=== PATIENT | female | born 1950 | race Caucasian/White ===

== ENCOUNTER 2016-10-31 07:08 | Day surgery (SDC) | payer BC ==
[2016-10-31] VITALS (11 sets, daily range): BP systolic 112–148; BP diastolic 66–93; PULSE 89–106; TEMP 36.6–36.8; O2SAT 96–98; Ht 161.3 cm; Wt 66.0 kg
[~2016-10-31] VITALS: Ht 161.3 cm; Wt 66.0 kg
[~2016-10-31 07:08] MED LIST: ALBUAER19 INH; CLTP PO; CYCL0.052 OP; DICL50TA3 PO; GLUC10007 PO; IBUP600T44 PO; MONT1TAB5 PO; MULTTAB5 PO; NRN/300 PO; OMEG-112 PO; PANT1TAB48 PO; POLY1DRO2 OPB; POLYSOL4 OP; RISE150T PO; RXC5 PO
--- NOTE | 2016-10-31 09:39 | Discharge Instructions ---
Discharge Instructions Procedure Procedure Date: Oct 31, 2016. Reason for visit: Spinal Stenosis. Discharge Discharge Date: Oct 31, 2016. Discharge Diagnosis: s/p lumbar myelogram Instructions Activity Recommendations: 1 Day-May resume regular activity, 48 Hours of decreased exertion Return to School/Work: no limitations Recommended Home Diet: No Limitations Provider Instructions: ACTIVITY RECOMMENDATIONS: * Rest today. * Resume regular activity in one day. MEDICATIONS: * May take Tylenol or Ibuprofen as needed for pain. DIET: * Resume previous diet. SPECIAL CARE INSTRUCTIONS: Call your doctor if: * Temperature above 101 degrees F. * Pain not relieved by pain medicine ordered. * Increased drainage or redness from incision. * Notify your doctor with any questions or concerns. Call your doctor or go to the nearest Emergency Department if you experience: * Increased chest pain or shortness of breath. FOLLOW UP VISIT: Follow-up with Referring Physician as scheduled. Allergies Coded Allergies: Cephalexin (Verified Allergy, Unknown, RASH, 10/31/16) Clindamycin (Verified Allergy, Unknown, RASH, 10/31/16) CLEOCIN = RASH Morphine (Unverified Adverse Reaction, Severe, n/v, hallucinations, ) [place] Recommendations: Call your doctor if: * Temperature above 101 degrees * Pain not relieved by pain medicine ordered * There is increased drainage or redness from any incision * You have any unanswered questions or concerns. Your Doctors Instructions noted above were prepared by provider Lucius Knight. Patient Signature Section: Patient Instructions Signature Page Patricia Bass Patient (or Guardian) Signature/Date: I have read and understand the instructions given to me by my caregivers. Caregiver/RN/Doctor Signature/Date: The above-named patient and/or guardian has received patient instructions on this date. + Original Patient Signature Page (only) stays with chart. Please make copy for patient.
--- NOTE | 2016-10-31 09:52 | DIAGNOSTIC IMAGING REPORT ---
FLUOROSCOPICALLY GUIDED LUMBAR MYELOGRAM CLINICAL HISTORY: Lumbar myelogram. Low-back pain radiating into left lower extremity. COMPARISON STUDY: MRI of the lumbar spine August 27, 2015. Fluoroscopy time: 0.5 minutes. PROCEDURE: The procedure, risks and benefits were discussed with the patient including the risk of spinal headache, bleeding and infection. The patient agreed to the procedure and informed written consent was obtained. Fluoroscopy of the lumbar spine demonstrating multilevel fusion with one level discectomy. Skin overlying the laminectomy site at the L5 level was prepped and draped in sterile fashion and local anesthesia was achieved with 1% lidocaine. Under intermittent fluoroscopic guidance, a 5 inch, 22-gauge spinal needle was directed into the thecal sac with immediate return of clear CSF. At this time, 10 cc of Isovue-M 200 was instilled to the thecal sac. The needle was removed. Fluoroscopic images demonstrated mild ventral indentation upon the thecal sac at several levels. The patient was transported to CT. The patient tolerated the procedure well and no immediate complications were evident. IMPRESSION: Fluoroscopic guided myelogram prior to CT. Electronically signed by: Lucius Knight M.D. 10/31/2016 9:51 AM Dictated Date/Time: 10/31/2016 9:39 AM
--- NOTE | 2016-10-31 10:07 | DIAGNOSTIC IMAGING REPORT ---
CT LUMBAR MYELOGRAM CT DOSE: 643.38 mGy.cm CLINICAL HISTORY: Low back pain radiating into left lower extremity. TECHNIQUE: Following a fluoroscopically guided lumbar myelogram, axial images through the lumbar spine were obtained without IV contrast. Sagittal and coronal reconstructions were viewed. COMPARISON STUDY: MRI of the lumbar spine August 27, 2015. FINDINGS: For purposes of numbering on this exam, the L5-S1 disc space is assigned to axial image 303 of [id number]. There is an L4-L5 discectomy with interbody spacer placement. There is a right-sided pedicle screw at the L3 level with bilateral pedicle screws at the L4, L5 and S1 levels. The hardware is intact. There is lucency surrounding the right L3 pedicle screw with mild lucency surrounding the S1 pedicle screws. No acute lumbar spine fracture is present. Note is made of 5 mm of anterolisthesis of L5 on S1 which is similar to exam of August 27, 2015. There is minimal retrolisthesis of L4 and L5 which is improved. No intracanalicular mass or fluid collection is present. A tiny locule of gas within the thecal sac is likely related to the procedure. T12-L1: The central canal and neural foramen are patent. L1-L2: The central canal and neural foramen are patent. L2-L3: The central canal and neural foramen are patent. L3-L4: There is a disc bulge with central disc protrusion. There is no significant central canal narrowing. There is an mild narrowing of the lateral recesses and neural foramen. L4-L5: The central canal is patent. The neural foramen are suboptimally assessed due to artifact. There is suspected mild narrowing of both neural foramen. L5-S1: There is no central canal stenosis. There is mild narrowing of the neural foramen. IMPRESSION: 1. Status post L4-L5 discectomy with interbody spacer placement and L3-S1 pedicle screw fusion. Lucency surrounding the right L3 pedicle screw and to a the lesser extent the S1 pedicle screws raises the possibility of loosening. 2. No lumbar spine fracture. 3. Mild disc bulge with central disc protrusion at L3-L4 with mild narrowing of the lateral recesses and neural foramen. 4. Mild multilevel neural foraminal stenosis, as detailed above. Electronically signed by: Lucius Knight M.D. 10/31/2016 10:06 AM Dictated Date/Time: 10/31/2016 9:54 AM
[2016-11-20] MEDS ORDERED: POLYSOL4 OP (11:57)
[2017-01-28] MEDS ORDERED: OFLO0.3S OPR (12:34)
[2017-01-28] MEDS ORDERED: PRED1SUS3 OPR (12:34)
[2017-01-28] MEDS ORDERED: NEPA0.6D OPR (12:35)
== END 2016-10-31 13:30 | disposition home or self-care (01) ==
LOC: C.ACU 07:08
PROVIDERS: ATTEND Orthopaedic Surgery Orthopaedic Surgery of the Spine
DX: M48.06 Spinal stenosis, lumbar region (principal); M54.16 Radiculopathy, lumbar region

== ENCOUNTER → 2016-11-11 | Outpatient (CLI) | payer BC ==
[~2016-11-11] MED LIST changes: +ACET-1256 PO; +NEPA0.6D OPR; +OFLO0.3S OPR; +PRED1SUS3 OPR; -RXC5 PO
--- NOTE | 2016-11-11 12:05 | DIAGNOSTIC IMAGING REPORT ---
THREE-PHASE NUCLEAR BONE SCAN OF THE LUMBAR SPINE; WHOLE BODY BONE SCAN CLINICAL HISTORY: Chronic low back pain. Clinical concern for hardware loosening. COMPARISON STUDY: CT scan of the lumbar spine dated 10/31/2016. Left shoulder radiographs dated 06/27/2016. TECHNIQUE: Following the IV administration of 24.8 mCi of technetium 99m MDP, three-phase bone scan of the lumbar spine was performed. Anterior and posterior flow and blood pool phase images were acquired. Bone phase imaging of lumbar spine was performed at three hours in multiple obliquities. Whole body images were obtained both anteriorly and posteriorly. FINDINGS: No hyperemia is clearly identified in the region of the lumbar spine or sacrum on the flow and blood pool phase images. On the bone phase images of the lumbar spine there is diffuse low-level activity, likely on a degenerative and postoperative basis. There is slightly asymmetric activity in the region of the right pedicle of L3. There is also nonspecific activity within the sacrum bilaterally. These findings may be related to hardware loosening which is strongly suspected by CT. This could also be related to chronic insufficiency fractures. There is marked and asymmetric activity within the left iliac wing. This is consistent with a healing fracture when correlated with the 10/31/2016 CT scan. There is asymmetric activity within the right pubic ring. On the whole body imaging, there is significant an focal asymmetric activity within the left humeral neck. This is consistent with a healing fracture when correlated with the 06/27/2016 shoulder x-rays. Low-level foci of activity within the shoulders, knees, ankles, and right first metatarsophalangeal joint are typical appearance for degenerative change. There is expected excreted tracer activity within the renal collecting system and bladder. IMPRESSION: 1. Three-phase negative bone scan of lumbar spine. No hyperemia is identified on the flow or blood pool phase images. 2. There is focal bone phase activity within the right pedicle of L3. This is highly concerning for loosening when correlated with the CT images. 3. There is nonspecific low level tracer activity identified in the sacrum. This could be related to loosening of the sacral hardware which is strongly suspected by CT. This could also be related to chronic sacral insufficiency fractures which were also shown by CT. 4. There is significant abnormal tracer deposition shown within the left iliac wing. This is consistent with a subacute/healing fracture when correlated with the 10/31/2016 CT images. 5. Significant abnormal tracer uptake in the left proximal humerus is consistent with a healing fracture when correlated with the 06/27/2016 shoulder x-ray. 6. Focal abnormal activity within the right pubic ring is nonspecific and could also represent a healing fracture. Consider radiographic correlation. Electronically signed by: Fahad Alberto M.D. 11/11/2016 12:04 PM Dictated Date/Time: 11/11/2016 11:50 AM
== END | disposition home or self-care (01) ==
LOC: C.NUCL 07:22
PROVIDERS: ATTEND Orthopaedic Surgery Orthopaedic Surgery of the Spine
DX: R52 Pain, unspecified (principal); R93.7 Abnormal findings on diagnostic imaging of other parts of musculoskeletal system

== ENCOUNTER → 2016-11-18 | Outpatient (CLI) | payer BC | END | disposition home or self-care (01) | LOC: C.LABBC 09:23 | PROVIDERS: ATTEND Orthopaedic Surgery Orthopaedic Surgery of the Spine | DX: Z01.812 Encounter for preprocedural laboratory examination (principal) ==

== ENCOUNTER 2016-11-27 05:26 | Inpatient (IN) | payer BC, OTHER ==
[2016-11-18 13:53] LABS: BASO % 0.5 %; BASO ABS # 0.03 K/uL (0-0.2); COMPLETE YES; EOS % 2.1 %; LYMPH % 21.4 %; LYMPH ABS # 1.21 K/uL (1.2-3.4); MEAN CELL VOLUME 96.2 fL (80-100); MEAN CORPUSCULAR HEMOGLOBIN 33.2 pg (25-34); MEAN CORPUSCULAR HGB CONC 34.5 g/dl (32-36); MEAN PLATELET VOLUME 11.7 fL (7.4-10.4); MONO % 13.1 %; NEUT % 62.9 %; PLATELET COUNT 244 K/uL (130-400); RED BLOOD COUNT 4.16 M/uL (4.2-5.4); WHITE BLOOD COUNT 5.66 K/uL (4.8-10.8)
[2016-11-18 14:03] LABS: BLOOD UREA NITROGEN 12 mg/dl (7-18); BUN/CREATININE RATIO 15.2 (10-20); CALCIUM 9.4 mg/dl (8.5-10.1); CARBON DIOXIDE 27 mmol/L (21-32); CHLORIDE 103 mmol/L (98-107); CREATININE 0.77 mg/dl (0.60-1.20); GLUCOSE 98 mg/dl (70-99); POTASSIUM 4.2 mmol/L (3.5-5.1); SODIUM 139 mmol/L (136-145)
[2016-11-18 14:17] LABS: PROTHROMBIN TIME (PATIENT) 10.6 SECONDS (9.0-12.0)
[2016-11-20 11:57] VITALS: BMI 25.0
--- NOTE | 2016-11-26 21:09 | HISTORY & PHYSICAL EXAMINATION ---
DATE OF ADMISSION: 11/27/2016 PREOPERATIVE HISTORY AND PHYSICAL PROCEDURE: Lumbar spine revision, spinal columns construct with fusion L5-S1, posterior interbody L5-S1. Hopefully, correct her swayback deformity. HISTORY OF PRESENT ILLNESS: Patricia is a delightful patient, 66 years of age, mechanical back pain, strained the lumbar spine, possible loose implants lumbar spine and spondylolisthesis L5-S1. She has back pain, lower extremity difficulty, ongoing now for about 1 year in duration. PAST MEDICAL HISTORY: Positive for breast carcinoma, asthma. PAST SURGICAL HISTORY: Lumbar spine reconstruction, breast surgery. ALLERGIES: ANCEF, CLINDAMYCIN. FAMILY HISTORY: Heart disease. SOCIAL HISTORY: She is . She is active, 1-2 alcoholic beverages daily. No tobacco use. Active lifestyle, retired. REVIEW OF SYSTEMS: Her major positive review is musculoskeletal back pain. Ear, nose and throat negative. Denies fevers, sweats, or chills. Denies asthma, shortness of breath. Denies nausea, vomiting. Denies urgency, frequency. No diabetes. Thyroid, no easy bruisability. MEDICATIONS: Neurontin, Actonel, vitamins, Castana, glucosamine. PHYSICAL EXAMINATION: GENERAL: She is 5 foot 5 inches, 150 pounds. She is in distress. She has back pain as described. VITAL SIGNS: Blood pressure 130/80, pulse of 80, respiration rate 16, temperature 97.4. HEENT: Pupils are equally reactive to light and accommodation. Ear, nose and throat clear. CARDIAC: Normal S1, S2, no S3. LUNGS: Clear to auscultation. ABDOMEN: Soft, nontender. All incisions clean, dry. No signs of infection. SPINE: Lumbar spine incision perfect. SKIN AND INTEGUMENTARY: Normal, no adenopathy. NEUROLOGICAL: She has 5/5 strength, good sensation, slight weakness of quad on the right and dorsiflexion on the right, mild gait abnormality. Pain with flexion and extension, pain with percussion. IMAGES: Demonstrated a very significant swayback deformity of the spine, L5-S1 spondylolisthesis. No apparent broken implants. ASSESSMENT: Mechanical back pain, accentuated lordosis lumbar spine, possible broken implants, spondylolisthesis L5-S1. DISPOSITION: Includes revision surgery, lumbar spine and a decompression fusion and posterior lumbar interbody fusion at L5-S1 lumbar spine, under general anesthetic at [facility] on the . [facility]
[2016-11-27] VITALS (10 sets, daily range): BP systolic 99–134; BP diastolic 64–85; PULSE 78–95; TEMP 36.3–36.8; O2SAT 94–100; Ht 162.6 cm; Wt 66.4 kg
[~2016-11-27] VITALS: Ht 162.6 cm; Wt 66.4 kg
[~2016-11-27 05:26] MED LIST changes: -ACET-1256 PO; -NEPA0.6D OPR; -OFLO0.3S OPR; -PRED1SUS3 OPR
[2016-11-27] MEDS ORDERED: LACTATED RINGER'S 1000ML IV SCH (06:00)
[2016-11-27] MEDS ORDERED: VANCOMYCIN 1GM/270ML NSS 270 ML IV SCH (06:00)
[2016-11-27] MEDS ORDERED: NSS 1000ML IV SCH (06:00)
[2016-11-27] MEDS ORDERED: ACET-1256 PO (06:20)
[2016-11-27] MEDS ORDERED: MIDAZOLAM HCL 1 MG/ML 2ML VIAL ONE (06:40)
[2016-11-27] MEDS ORDERED: FENTANYL CITRATE INJ 50 MCG/1 ML 2 ML VIAL ONE (06:40)
[2016-11-27] MEDS ORDERED: GELATIN SPONGE SZ 100 ONE ×3 (06:57→09:23)
[2016-11-27] MEDS ORDERED: BUPIVACAINE/EPINEPHRINE 0.5% MPF 1:200,000 30 ML VIAL ONE (06:58)
[2016-11-27] MEDS ORDERED: VANCOMYCIN HCL 1000MG/20ML VIAL ONE (06:58)
[2016-11-27] MEDS ORDERED: THROMBIN FOR SOLN 20000 UNIT KIT ONE ×2 (06:58→08:14)
[2016-11-27] MEDS ORDERED: BACITRACIN 50000 UNIT VIAL ONE (06:59)
--- NOTE | 2016-11-27 07:10 | History & Physical Bridge Note ---
H&P Re-Evaluation Bridge Note: I have examined the patient, reviewed the History & Physical and in the interval since the performance of the History & Physical I have noted the following changes of clinical significance: Removal of prior implants L3-S1. reinsertion, PLIF L5-S1
[2016-11-27] MEDS ORDERED: HYDROmorphone INJ 2 MG/ML SYR/VIAL ONE (07:47)
[2016-11-27] MEDS ORDERED: GLYCOPYRROLATE INJ 0.2 MG/ML VIAL ONE (07:56)
[2016-11-27] MEDS ORDERED: PROPOFOL IV EMULSION 10 MG/ML 20 ML VIAL IV ONE (07:56)
[2016-11-27] MEDS ORDERED: ROCURONIUM BROMIDE 10 MG/ML 5 ML VIAL ONE (07:56)
[2016-11-27] MEDS ORDERED: ONDANSETRON INJ 2 MG/ML 2 ML VIAL ONE (07:56)
[2016-11-27] MEDS ORDERED: DEXAMETHASONE SOD INJ 4 MG/ML VIAL ONE (07:56)
[2016-11-27] MEDS ORDERED: LIDOCAINE HCL 2% 2 ML VIAL (20MG/ML) ONE (07:56)
[2016-11-27] MEDS ORDERED: NEOSTIGMINE METHYLSULFATE 5 MG/5 ML SYR ONE (07:56)
[2016-11-27] MEDS ORDERED: ALBUMIN HUMAN 5% 12.5 GM/250 ML VIAL IV ONE (08:38)
[2016-11-27 10:03] LABS: HEMATOCRIT 29.6 % (37-47)
[2016-11-27] MEDS ORDERED: ATROPINE SULFATE 0.1 MG/ML 5ML SYR IV PRN (10:30)
[2016-11-27] MEDS ORDERED: LABETALOL HCL IV 5 MG/ML 20ML IV PRN (10:30)
[2016-11-27] MEDS ORDERED: ONDANSETRON INJ 2 MG/ML 2 ML VIAL IV PRN ×2 (10:30→11:45)
[2016-11-27] MEDS ORDERED: NALOXONE HCL 0.4 MG/1 ML VIAL/CARP IV PRN ×2 (10:30→11:45)
[2016-11-27] MEDS ORDERED: PROMETHAZINE HCL INJ 12.5 MG in SODIUM CHLORIDE 0.9% 50ML 50 ML IV PRN ×2 (10:30→11:45)
[2016-11-27] MEDS ORDERED: EpHEDrine SULFATE INJ 50 MG/ML AMP IV PRN (10:30)
[2016-11-27 10:35] LABS: HEMATOCRIT 26.9 % (37-47)
[2016-11-27] MEDS ORDERED: PHENYLEPHRINE HCL INJ 10 MG/ML VIAL ONE (11:15)
--- NOTE | 2016-11-27 11:28 | DIAGNOSTIC IMAGING REPORT ---
INTRAOPERATIVE RADIOGRAPHS CLINICAL HISTORY: L2-S1 spinal fusion. Fluoroscopy time: 22 seconds. FINDINGS: 3 spot fluoroscopic views of lumbar spine are presented. There is evidence of discectomy at L4-L5 and L5-S1. There is been laminectomy and posterior fusion from L2 -S1. Intraventricular screws are present at all levels with the exception of L2. The orthopedic hardware appears intact. A surgical drain is present in the posterior soft tissues. IMPRESSION: Intraoperative images from L2 -S1 spinal fusion as above. Electronically signed by: Fahad Alberto M.D. 11/27/2016 11:26 AM Dictated Date/Time: 11/27/2016 11:25 AM
--- NOTE | 2016-11-27 11:37 | [facility] Post Operative Brief Note ---
Immediate Operative Summary Operative Date Nov 27, 2016. Pre-Operative Diagnosis SPINAL STENOSIS, LOOSE HARDWARE Post-Operative Diagnosis SAME PREOP Procedure(s) Performed L3-S1 HARDWARE REMOVAL , L2-S1 SPINAL FUSION, APPLICATION INTERBODY CAGE L5-S1, LEFT ILIAC CREST BONE GRAFT Surgeon DR.J. ARCHULETA Design Technology Professor Surgeon(s) Dorothy BRUCE PAC Estimated Blood Loss 800ml Findings loose hardware. non union Specimens REMOVED SPINE HARDWARE Complication(s) None Disposition Recovery Room / PACU
[2016-11-27] MEDS ORDERED: LORAZEPAM INJ 1 MG in SYRINGE 0 ML IV PRN (11:45)
[2016-11-27] MEDS ORDERED: ALBUTEROL HFA 8 GM INHALER INH PRN (11:45)
[2016-11-27] MEDS ORDERED: GLUCOSAMINE SULFATE 1500 MG PO SCH (11:45)
[2016-11-27] MEDS ORDERED: PANTOprazole SOD 40 MG TAB PO PRN (11:45)
[2016-11-27] MEDS ORDERED: ACETAMINOPHEN 325 MG TAB PO PRN (11:45)
[2016-11-27] MEDS ORDERED: SODIUM CHLORIDE 0.9% 1000ML 1,000 ML IV SCH (11:45)
[2016-11-27] MEDS ORDERED: METOCLOPRAMIDE HCL INJ 5 MG/ML 2 ML VIAL IV PRN (11:45)
[2016-11-27] MEDS ORDERED: MAGNESIUM HYDROXIDE SUSP 30 ML UDC PO PRN (11:45)
[2016-11-27] MEDS: HYDROmorphone INJ 1 MG/ML SYR IV PRN ×3 (11:55→12:25)
[2016-11-27] MEDS ORDERED: HYDROmorphone HCL 0.5MG/ML 50 ML CASSETTE ONE (12:03)
[2016-11-27] MEDS: HYDROmorphone HCL 0.5MG/ML 50 ML CASSETTE IV PRN ×3 (12:10→19:00)
[2016-11-27 12:29] LABS: HEMATOCRIT 28.9 % (37-47)
--- NOTE | 2016-11-27 13:14 | Anesthesiology Progress Note ---
Anesthesia Post Op Note Date & Time Nov 27, 2016 at 13:14 Vital Signs Pain Intensity: 4 Vital Signs Past 12 Hours Date Time Temp Pulse Resp B/P Pulse Ox O2 Delivery O2 Flow Rate FiO2 11/27/16 12:55 96 15 97/54 100 Nasal Cannula 4 11/27/16 12:45 78 15 99/62 100 Nasal Cannula 4 11/27/16 12:35 36.7 94 15 107/59 100 Nasal Cannula 4 11/27/16 12:25 85 12 105/56 99 Nasal Cannula 4 11/27/16 12:15 101 12 114/57 99 Mask 10 11/27/16 12:05 96 12 109/63 99 Mask 10 11/27/16 11:55 99 12 111/62 99 Mask 10 11/27/16 11:45 98 12 127/70 100 Mask 10 11/27/16 11:39 36.7 100 16 124/81 99 Mask 10 11/27/16 05:47 36.8 88 20 134/85 96 Room Air Notes Mental Status: alert / awake / arousable, participated in evaluation Pt Amnestic to Procedure: Yes Nausea / Vomiting: adequately controlled Pain: adequately controlled Airway Patency, RR, SpO2: stable & adequate BP & HR: stable & adequate Hydration State: stable & adequate Anesthetic Complications: no major complications apparent
--- NOTE | 2016-11-27 13:16 | OPERATIVE REPORT ---
DATE OF OPERATION: 11/27/2016 PREOPERATIVE DIAGNOSES: 1. Spondylolisthesis L5-S1. 2. Possible nonunion L4, L5, S1. 3. Loose hardware prior construct lumbar spine. POSTOPERATIVE DIAGNOSES: Same. PROCEDURE: Include: 1. Removal of prior instrumentation, pedicle screw system from L3 to the sacrum. 2. A pedicle screw instrumentation L2 down to the sacrum revision strategies. 3. Posterior lumbar interbody fusion at L5-S1. 4. Posterolateral fusion L2-L5, instrumentation as well L2 down to the sacrum. SURGEON: Dr. Jackson. SIZING MACHINE TENDER: Félix De PA-C. COMPLICATIONS: No apparent intraoperative complications. BLOOD LOSS: 800 mL DESCRIPTION OF PROCEDURE: The patient was taken the operating room and general intubated anesthetic provided to the patient, placed prone, scrubbed with Betadine, prepped with ChloraPrep, draped sterile. We made a skin incision to the sacrum, dissecting the soft tissue. We carefully got to the old implants, dissected the soft tissue out over the implants. We did have more than the normal amount of bleeding from the prior fusion. I think some neovascularization caused some extra blood flow to the region. We were carefully able to take out the old implants. There was definite loosening of some of the screws, particularly S1 on the left, L4 on the right hand side. The entire construct was not grossly loose. There were no signs of purulence or infection. We then concentrated on the L5-S1 interval. I was carefully able to get to the disc space on the right hand side. It was very tedious, it was very tight. We were able to retract the dura over and find the disc interval, do a posterior lumbar interbody fusion at L5-S1 with a PEEK cage packed with allograft and autograft in a demineralized bone matrix. We then instrumented the spine, safely getting revision screws which were larger screws 5, 4, 2 on the right and the sacrum 5, 4, and 2 on the left. I was pleased with the positioning and the fixation. There were no apparent complications with the construct. We irrigated thoroughly. Prior to closing, we bone grafted out of the transverse processes a combination of allograft and autograft material and DBM which is demineralized bone matrix. We placed this from 2, 3, to 4. Additional procedure was a left iliac crest graft. I made the same skin incision, separate fascial incision. I was able to harvest bone graft from the left ilium. A nice quantity of bone was obtained. I felt we did not harm the iliac crest or iliac wing. We irrigated, closed in layers, staple gun on the skin. Sterile dressing applied. Vancomycin topical powder placed in the wound, 1 gram. We had vancomycin mixed with the bone as well. Sterile dressings were applied. The patient returned to PACU stable. No apparent complications. Sponge and needle count correct. IMPLANTS USED: By the [employer]. I attest to the content of the Intraoperative Record and any orders documented therein. Any exceptions are noted below. MTDD
[2016-11-27] MEDS: SODIUM CHLORIDE 0.9% 1000ML 1,000 ML IV SCH ×2 (14:06→23:24)
[2016-11-27] MEDS: DEXAMETHASONE INJ 10 MG in SYRINGE 0 ML IV SCH ×2 (16:42→23:24)
[2016-11-27] MEDS: KETOROLAC TROMETHAMINE 30 MG/ML VIAL IV. SCH ×2 (16:42→20:48)
[2016-11-27] MEDS: CycloSPORINE 0.05% 0.4 ML 30 UDV/BOX OP SCH (18:23)
[2016-11-27] MEDS: SYSTANE OP SCH (18:24)
[2016-11-27] MEDS: VANCOMYCIN INJ 1,000 MG in SODIUM CHLORIDE 0.9% 250ML 250 ML IV SCH (19:12)
[2016-11-27] MEDS: MONTELUKAST SOD 10 MG TAB PO SCH (20:48)
[2016-11-27] MEDS ORDERED: NON-FORMULARY MEDICATION (Polyethylene Glycol-Propylene (Systane) 1 DROPS) OP SCH (21:00)
[2016-11-28] VITALS (7 sets, daily range): BP systolic 109–132; BP diastolic 66–82; PULSE 74–128; TEMP 36.6–36.9; O2SAT 94–100
[2016-11-28] MEDS: KETOROLAC TROMETHAMINE 30 MG/ML VIAL IV. SCH ×3 (03:39→15:25)
[2016-11-28] MEDS: VANCOMYCIN INJ 1,000 MG in SODIUM CHLORIDE 0.9% 250ML 250 ML IV SCH (05:57)
[2016-11-28] MEDS ORDERED: BISACODYL 10 MG SUPP PR PRN (06:00)
[2016-11-28] MEDS ORDERED: BISACODYL 5 MG TABEC PO PRN (06:00)
[2016-11-28] MEDS: DEXAMETHASONE INJ 10 MG in SYRINGE 0 ML IV SCH ×3 (07:42→23:37)
[2016-11-28] MEDS ORDERED: HYDROmorphone INJ 1 MG/ML SYR IV PRN ×2 (08:00)
[2016-11-28] MEDS ORDERED: OXYCODONE/ACETAMINOPHEN 5-325 TAB PO PRN ×2 (08:00)
[2016-11-28] MEDS ORDERED: DC PCA ONE (08:00)
[2016-11-28] MEDS ORDERED: LORAZEPAM 1 MG TAB PO PRN (08:00)
[2016-11-28] MEDS ORDERED: NURSING VERBAL MED ORDER ONE (08:15)
[2016-11-28] MEDS: CycloSPORINE 0.05% 0.4 ML 30 UDV/BOX OP SCH ×2 (08:38→20:38)
[2016-11-28] MEDS: SYSTANE OP SCH ×2 (08:38→20:38)
[2016-11-28] MEDS: CALCIUM 600MG + VIT D 400 IU TAB PO SCH (08:39)
[2016-11-28] MEDS: CEROVITE ADV FORMULA TAB PO SCH (08:39)
[2016-11-28] MEDS: GABAPENTIN 300 MG CAP PO SCH ×2 (08:40→20:39)
[2016-11-28] MEDS: POLYETHYLENE (MIRALAX) 17 GM PACK PO SCH (08:40)
--- NOTE | 2016-11-28 09:52 | PROGRESS NOTE ---
DATE: 11/28/2016 DATE: 11/28/2016. SUBJECTIVE: Moderate complaints of pain. Denies chest pain, shortness of breath, alert, oriented, out of bed to chair, taking p.o. OBJECTIVE: Vital signs stable. Hematocrit 26.0. IMPRESSION: Status post major spinal reconstructive surgery on the lumbar spine. DISPOSITION: We will get her out of bed to chair today walking about 20 feet, tentatively home tomorrow with home health. We will check her lab work in the morning as well. I am hopeful to hold off on the transfusion as she is minimally symptomatic.
[2016-11-28] MEDS: MONTELUKAST SOD 10 MG TAB PO SCH (20:38)
[2016-11-29 05:42] LABS: HEMATOCRIT 24.7 % (37-47)
[2016-11-29 06:53] VITALS: BP 116/72; PULSE 107; TEMP 36.7; O2SAT 97
[2016-11-29] MEDS: SYSTANE OP SCH (07:19)
[2016-11-29] MEDS: CALCIUM 600MG + VIT D 400 IU TAB PO SCH (07:19)
[2016-11-29] MEDS: GABAPENTIN 300 MG CAP PO SCH (07:20)
[2016-11-29] MEDS: CEROVITE ADV FORMULA TAB PO SCH (07:20)
[2016-11-29] MEDS: POLYETHYLENE (MIRALAX) 17 GM PACK PO SCH (07:20)
[2016-11-29] MEDS: CycloSPORINE 0.05% 0.4 ML 30 UDV/BOX OP SCH (07:20)
--- NOTE | 2016-11-29 09:54 | Discharge Instructions ---
Discharge Instructions Date of Service Nov 29, 2016. Admission Reason for Admission: Lumbar Spondylosis With Myelopathy Discharge Discharge Diagnosis / Problem: stenosis Discharge Goals Goal(s): Improve function Activity Recommendations Activity Limitations: as noted below Lifting Limitations: until after follow-up appointment Exercise/Sports Limitations: until after follow-up appointment May Resume Sexual Activity: after follow-up appointment Shower/Bathe: keep incision dry Driving or Machine Use: . Instructions / Follow-Up Instructions / Follow-Up MEDICATIONS: Please take your prescriptions as instructed at your pre-op appointment. SPECIAL CARE: The following information is intended to answer some of the common questions and concerns regarding your surgery. Each patient is an individual and receives individual counselling throughout the course of treatment, from diagnosis to surgery all the way through recovery. What follows is not an exhaustive list, but should be a useful guide to some of the common questions and concerns patients have regarding their surgeries. These are not provided to keep you from calling us; rather, they give you something accurate and concrete to reference as you recover from your procedure. If you need us, we are available to you. As always, if you are not sure about something, call us at [phone]. MEDICAL EMERGENCIES: For these conditions, call 911 or go to your local hospital-based Emergency Department - not [facility] or equivalent. * Paralysis * Severe chest pain or difficulty breathing * Swelling or redness of either leg Spine procedures can be rather complex and though complications are rare, they do occur. In such cases, effective advice regarding emergency situations cannot always be addressed over the telephone. You may be referred to the emergency department for more effective management of your problem. Activity Limitations: It is important to give your body time to heal, so please limit your activities : * In general, don't do anything that moves your spine too much. You should avoid contact sports, twisting or heavy lifting while you recover. * 5-10 pounds is all you should attempt to lift. * You should not plan on driving for approximately 3 weeks and you should avoid traveling more than 30-45 minutes at a time. Longer trips should be broken down with walking breaks spaced appropriately. * Physical therapy is not usually required. * Walking and good posture practices will help you recover and regain your function. * Avoid straining or sudden changes in position. * In general, the goal is to take it easy and recover. Don't cause any new problems. Just relax. Showers: * Do not take a bath, use a Jacuzzi or hot tub or otherwise submerge your incision. * It is usually safe to take a shower 4-5 days after your surgery. * Your incision does not require any special creams or ointments. * Simply clean it with soap and water, dry and re-dress with a clean bandage afterwards. Incision: * Keep incision clean, dry and protected until your first follow-up appointment. * Some amount of drainage and redness is normal. Any drainage should be fairly clear and not have a foul odor. * If you feel anything is wrong or you have excessive drainage, please call us. * Your stitches and brigido will be removed 10-14 days after your surgery. At the time of your first post-op visit. * Neck surgeries are typically closed with a suture underneath the skin. The steri-strips over the incision should be maintained until we see you in the office. Bracing: * You may be provided with a back or neck brace to encourage good posture and prevent injury. It will remind you not to do too much as you heal and will alert others to the fact that you have had a surgery. * Back braces may be removed for showers and when you are resting at home. They must be worn when you are walking around for any period of time or for travel. * For neck surgery, you will likely be provided with two cervical collars. The soft collar (Carencro or foam rubber) is worn most commonly throughout the day and while sleeping. The plastic collar (provided at the hospital) is for showering/bathing. * Except while eating, collars should remain in place. More specifically, bracing is provided for a purpose and should be worn. * Please obtain your brace or collars prior to your operation and bring them to the hospital with you on the day of surgery. * You should also bring your collars to your post-op appointment with Dr. Jackson. You should always take good care of your body and practice healthy habits, especially following surgery. You should: * Follow your doctor's treatment plan * Sit and stand properly with good posture (ears over shoulders, shoulders over hips) Don't slouch * Learn to lift correctly * Exercise regularly (low-impact aerobic exercise is especially good, but check with your doctor first) * Generally, be up and walking for 5-10 minutes at a time at least 3-4 times per day from the day you get home * Increasing walking to tolerance until you can walk for 20-30 minutes at a time * Attain and maintain a healthy body weight * Eat healthy foods ( a well-balanced, low-fat diet rich in fruits and vegetables) and get enough calcium * Avoid excessive use of alcohol When to call our office - If you notice any of the following: * Increased pain not relieve by pain medicine * Fevers greater then 100 degrees F, chills or flu symptoms * Increased redness around incision * Drainage from the incision that is not clear * Any foul smelling drainage * Swelling or fluid collection beneath the skin Miscellaneous: * In the hospital, you may be given a walker or cane for support while walking. These are temporary needs and are intended to prevent injuries due to falls. You may discontinue them when you feel strong and steady enough on your feet. * Sleep in a comfortable position. We find that many patients find a lounge chair or recliner with several pillows to be beneficial in the early post-operative period. * The support stockings should be used for 7-10 days and may be discontinued when you are back to walking more and conducting usual household activities. No problem is insignificant. We are here to help you and get you well. Contact us at [phone]. Definitions: Foraminotomy: If part of the disc or a bone spur (osteophyte) is pressing on a nerve as it leaves the vertebra (through an exit called the foramen), a foraminotomy may be done. Otomy means "to make an opening." A foraminotomy is making the opening of the foramen larger, so the nerve can exit without being compressed. Laminotomy: Similar to the foraminotomy, a laminotomy makes a larger opening, this time in your bony plate protecting your spinal canal and spinal cord (the lamina). The lamina may be pressing on your nerve, so the surgeon may make more room for the nerves using a laminotomy. Laminectomy: Sometimes, a laminotomy is not sufficient. The surgeon may need to remove all or part of the lamina. This procedure is called a laminectomy. This can often be done at many levels without any harmful effects. Current Hospital Diet Patient's current hospital diet: Regular Diet Discharge Diet Recommended Diet: Regular Diet Fluid Restriction: None Procedures Procedures Performed: L3-S1 HARDWARE REMOVAL , L2-S1 SPINAL FUSION, APPLICATION INTERBODY CAGE L5-S1, LEFT ILIAC CREST BONE GRAFT Pending Studies Studies pending at discharge: no Medical Emergencies . Who to Call and When: Medical Emergencies: If at any time you feel your situation is an emergency, please call 911 immediately. . Non-Emergent Contact Non-Emergency issues call your: Surgeon, Specialist Call Non-Emergent contact if: wound has increased pain, you have any medication questions . "Provider Documentation" section prepared by James Jackson. VTE Core Measure Inpt VTE Proph given/why not?: Treatment not indicated
[2016-11-29 10:02] VITALS: BP 116/72; PULSE 107; TEMP 36.7; O2SAT 97
--- NOTE | 2016-11-29 10:05 | DISCHARGE SUMMARY ---
DATE OF DISCHARGE: 11/29/2016. SUBJECTIVE: Minimal complaints of pain. Alert, oriented. Taking p.o. OBJECTIVE: Vital signs stable, alert, oriented. Wound clean. ASSESSMENT: Status post lumbar spine major reconstructive surgery, improved, stable in the short run. DISPOSITION: Will discharge her home improved stable condition, brace for support, walker for support. She has a followup in 1 week. Instructions, precautions given to the patient on multiple occasions.
[2017-01-28] MEDS ORDERED: PRED1SUS3 OPR (12:34)
[2017-01-28] MEDS ORDERED: OFLO0.3S OPR (12:34)
[2017-01-28] MEDS ORDERED: NEPA0.6D OPR (12:35)
== END 2016-11-29 10:54 | disposition home or self-care (01) | DRG 460 ==
LOC: ENRESERVDT → ENRESERVTM → C.ACU 05:26 → C.3E 11:45
PROVIDERS: ADMIT Orthopaedic Surgery Orthopaedic Surgery of the Spine; ATTEND Orthopaedic Surgery Orthopaedic Surgery of the Spine
PROC: 0QP104Z Removal of Internal Fixation Device from Sacrum, Open Approach (ICD-10-PCS; principal; 2016-11-27 07:30)
PROC: 0QP004Z Removal of Internal Fixation Device from Lumbar Vertebra, Open Approach (ICD-10-PCS; principal; 2016-11-27 07:30)
PROC: 0SG30AJ Fusion of Lumbosacral Joint with Interbody Fusion Device, Posterior Approach, Anterior Column, Open Approach (ICD-10-PCS; principal; 2016-11-27 07:30)
PROC: 0SG3071 Fusion of Lumbosacral Joint with Autologous Tissue Substitute, Posterior Approach, Posterior Column, Open Approach (ICD-10-PCS; principal; 2016-11-27 07:30)
PROC: 0QB30ZZ Excision of Left Pelvic Bone, Open Approach (ICD-10-PCS; principal; 2016-11-27 07:30)
PROC: 0SG1071 Fusion of 2 or more Lumbar Vertebral Joints with Autologous Tissue Substitute, Posterior Approach, Posterior Column, Open Approach (ICD-10-PCS; principal; 2016-11-27 07:30)
DX: M43.17 Spondylolisthesis, lumbosacral region (principal); M96.0 Pseudarthrosis after fusion or arthrodesis; T84.296A Other mechanical complication of internal fixation device of vertebrae, initial encounter; Z85.3 Personal history of malignant neoplasm of breast; J45.909 Unspecified asthma, uncomplicated; Z82.49 Family history of ischemic heart disease and other diseases of the circulatory system; Y83.1 Surgical operation with implant of artificial internal device as the cause of abnormal reaction of the patient, or of later complication, without mention of misadventure at the time of the procedure; Z98.890 Other specified postprocedural states

== ENCOUNTER → 2017-01-21 | Day surgery (SDC) | payer BC, OTHER ==
[2017-01-20 14:00] VITALS: Ht 161.3 cm; Wt 66.8 kg
[~2017-01-21] VITALS: Ht 161.3 cm; Wt 66.8 kg
[~2017-01-21] MED LIST changes: +500ML BSS 0.3ML EPI 1:1000PF IRRIG ONE; +ACET-1256 PO; +ACETAMINOPHEN 325 MG TAB PO PRN; +AMVISC PLUS 0.8ML SYRINGE INT OCU ONE; +ATROPINE SULFATE 0.1 MG/ML 5ML SYR IV PRN; +BSS FLUSH ONE; +ENDOCOAT 0.85ML SYRINGE INT OCU ONE; +EpHEDrine SULFATE INJ 50 MG/ML AMP IV PRN; +EpINEphrine INJ 1MG/ML AMP 1 MG/ML AMP ONE; -GLUC10007 PO; +LACTATED RINGER'S 1000ML 500 ML IV SCH; +LIDOCAINE 4% OP SOLN DROP CHARGE ONE; +LIDOCAINE 4% OP SOLN DROP CHARGE OPR SCH; +LIDOCAINE HCL 1% MPF 2 ML VIAL ONE; +MIDAZOLAM HCL 1 MG/ML 2ML VIAL ONE; +MIX: 4ML BSS 1ML EPI 1:1000 PF TOP ONE; +MOXIFLOXACIN OPH SOLN PER DROP CHARGE ONE; +NEPA0.6D OPR; +OFLO0.3S OPR; +POVIDONE-IODINE OP SOLN 30 ML BTL ONE; +PRED1SUS3 OPR; +PROPARACAINE 0.5% OP SOLN PER DROP CHARGE OPR SCH; +TOBRAMYCIN/DEXAMETHASONE OPH OINT PER APPLN CHARGE ONE
[2017-01-21] MEDS: PHENYLEPHRINE HCL 10% OP SOLN PER DROP CHARGE OPR SCH ×3 (08:45→08:54)
[2017-01-21] MEDS: TROPICAMIDE 1% OP SOLN PER DROP CHARGE OPR SCH ×3 (08:46→08:55)
[2017-01-21] MEDS: CYCLOPENTOLATE HCL 1% OP SOLN PER DROP CHARGE OPR SCH ×3 (08:47→08:56)
[2017-01-21] MEDS: MOXIFLOXACIN OPH SOLN PER DROP CHARGE OPR SCH ×3 (08:47→08:57)
--- NOTE | 2017-01-21 08:56 | History & Physical Bridge - [place] ---
H&P Re-Evaluation Bridge Note: I have examined the patient, reviewed the History & Physical and in the interval since the performance of the History & Physical I have noted the following changes of clinical significance: No changes noted. Right eye cataract surgery.
--- NOTE | 2017-01-21 09:58 | [facility] Post Operative Brief Note ---
Immediate Operative Summary Operative Date January 21, 2017. Pre-Operative Diagnosis Right eye cataract Post-Operative Diagnosis Same as preop Procedure(s) Performed Right Cataract Phacoemulsification With Intraocular Lens Implant Surgeon Dr. Blair Custom Bookbinder Surgeon(s) None Estimated Blood Loss 0 mL Findings right cataract Specimens None Complication(s) None Disposition
[2017-01-21 09:59] VITALS: TEMP 36.5
--- NOTE | 2017-01-21 09:59 | [facility] Operative Report ---
Operative Report Date of Service January 21, 2017. Operative Report Phaco with monofocal IOL DATE OF OPERATION: 01/21/17 PREOPERATIVE DIAGNOSIS: Senile nuclear cataract, right eye POSTOPERATIVE DIAGNOSIS: Senile nuclear cataract, right eye PROCEDURE PERFORMED: Phacoemulsification with intraocular lens implantation, right eye SURGEON: Dr. Raymond Blair ANESTHESIA: Topical with 1% intracameral lidocaine and monitored anesthesia care COMPLICATIONS: None DESCRIPTION OF PROCEDURE: After positively identifying the patient both verbally and by wristband in the preoperative area, the right eye was marked as the operative eye. The patient was then brought back to the operating room by the anesthesia and nursing staff where they were given a drop of Lidocaine and betadine into the operative eye. They were then sterilely prepped and draped in the standard fashion typical for ophthalmic surgery. Steri-strips were placed along the upper eyelids to keep the lashes back, and a lid speculum was placed into the operative eye. At this point, a documented time out was performed with members of the ophthalmology, nursing, and anesthesia staffs all agreeing upon the correct patient, correct location for surgery, correct procedure, and correct type and power of intraocular lens to be implanted. The microscope was then swung into position. First, a paracentesis wound was made using a sideport blade. Then, in sequence, 1% preservative-free lidocaine followed by Endocoat viscoelastic was injected into the anterior chamber. Next , the main incision was made with a keratome blade in triplanar fashion. A sharp cystotome was introduced into the eye and used to create a tear in the anterior capsule, which was directed into a continuous curvilinear capsulorrhexis using Utrata forceps. Hydrodissection was then performed with BSS on a flat-tip cannula. Next, the phacoemulsification handpiece was introduced into the eye and used to remove the nucleus in a nrdpti-sse-ibpubek fashion. This was done without complication and then the irrigation-aspiration handpiece was introduced into the eye and used to remove all remaining cortical and epinuclear material. Amvisc was then injected into the anterior chamber as well as into the capsular bag and using the lens injector system, an MX60 21.0 D lens, serial number [id number], and expiration date 07/2019 was injected into the capsular bag and rotated into the correct position. Next, the irrigation- aspiration handpiece was used to remove all remaining Amvisc. BSS was used to hydrate the main wound, and then BSS was injected into the paracentesis site to reach physiologic pressure and then the main wound was checked and found to be watertight. The patient was given drops of Vigamox and Tobradex ointment into the operative eye, and then the surrounding area was cleaned and dried. A clear plastic shield was placed over the eye and the patient was then sat up and taken from the operating room by the anesthesia staff having tolerated the procedure well and suffering no complications. DISPOSITION: The patient was returned to the recovery room in stable condition. I attest to the content of the Intraoperative Record and any orders documented therein. Any exceptions are noted below.
--- NOTE | 2017-01-21 10:00 | Discharge Instructions-SurgCtr ---
Discharge Instructions Date of Service January 21, 2017. Visit Reason for Visit: Cataract Right Eye Discharge Discharge Diagnosis / Problem: right cataract Discharge Goals Goal(s): Decrease discomfort, Improve function Activity Recommendations Activity Limitations: as noted below Anesthesia . Post Anesthesia Instructions: If you have had General Anesthesia or IV Sedation: * Do not drive today. * Resume driving when surgeon permits. * Do not make important decisions or sign legal documents today. * Call surgeon for: 1. Temperature elevations greater than 101 degrees F. 2. Uncontrollable pain. 3. Excessive bleeding. 4. Persistent nausea and vomiting. 5. Medication intolerance (nausea, vomiting or rash). * For nausea and vomiting use only clear liquids such as: tea, soda, bouillon until nausea subsides, then gradually increase diet as tolerated. * If you have any concerns or questions, call your surgeon's office. If physician is unavailable and it is an emergency, call 911 or go to the nearest emergency room. . Instructions / Follow-Up Instructions / Follow-Up ACTIVITY RECOMMENDATIONS: * Light activities. * You may walk outside, read, watch television. * You may notice redness on the white part of the eye and some blurry vision - this is normal. MEDICATIONS: Resume previous medications unless instructed otherwise by your surgeon. Start all eye drops at 12 pm today: * Eye drops (today): Prednisone - one drop in operative eye every 2 hours while awake Ofloxacin - one drop in operative eye every 2 hours while awake Ilevro - one drop in operative eye daily SPECIAL CARE INSTRUCTIONS: * Tape plastic shield over eye to sleep at night. Call your doctor at with any concerns or problems. FOLLOW UP VISIT: Follow-up with Dr Blair at [place] office as scheduled. Diet Recommendations Home Diet: no limitations Procedures Procedures Performed: Right Cataract Phacoemulsification With Intraocular Lens Implant Pending Studies Studies pending at discharge: no Medical Emergencies . Who to Call and When: Medical Emergencies: If at any time you feel your situation is an emergency, please call 911 immediately. . Non-Emergent Contact Non-Emergency issues call your: Surgeon . . "Provider Documentation" section prepared by Raymond Blair. .
--- NOTE | 2017-01-21 10:01 | Anesthesia Progress Nt - [facility] ---
Anesthesia Post Op Note Date & Time January 21, 2017 at 10:02 Vital Signs Pain Intensity: 0 Vital Signs Past 12 Hours Date Time Temp Pulse Resp B/P Pulse Ox O2 Delivery O2 Flow Rate FiO2 01/21/17 08:35 36.5 84 18 123/78 97 Room Air Notes Mental Status: alert / awake / arousable, participated in evaluation Pt Amnestic to Procedure: Yes Nausea / Vomiting: adequately controlled Pain: adequately controlled Airway Patency, RR, SpO2: stable & adequate BP & HR: stable & adequate Hydration State: stable & adequate Anesthetic Complications: no major complications apparent
[2017-01-21 10:21] VITALS: BP 115/76; PULSE 76; O2SAT 99
== END | disposition home or self-care (01) ==
LOC: X.SURG 08:11
PROVIDERS: ATTEND Ophthalmology
DX: H25.11 Age-related nuclear cataract, right eye (principal); Z88.5 Allergy status to narcotic agent; Z85.3 Personal history of malignant neoplasm of breast; Z98.890 Other specified postprocedural states

== ENCOUNTER → 2017-02-04 | Day surgery (SDC) | payer BC ==
[2017-01-28 12:36] VITALS: Ht 161.3 cm; Wt 66.8 kg
[~2017-02-04] VITALS: Ht 161.3 cm; Wt 66.8 kg
[~2017-02-04] MED LIST changes: +FENTANYL CITRATE INJ 50 MCG/1 ML 2 ML VIAL ONE; -LACTATED RINGER'S 1000ML 500 ML IV SCH; +LIDOCAINE 4% OP SOLN DROP CHARGE OPL SCH; -LIDOCAINE 4% OP SOLN DROP CHARGE OPR SCH; +PROPARACAINE 0.5% OP SOLN PER DROP CHARGE OPL SCH; -PROPARACAINE 0.5% OP SOLN PER DROP CHARGE OPR SCH
[2017-02-04] MEDS: LACTATED RINGER'S 1000ML 500 ML IV SCH ×2 (06:00→10:29)
--- NOTE | 2017-02-04 07:35 | History & Physical Bridge - [place] ---
H&P Re-Evaluation Bridge Note: I have examined the patient, reviewed the History & Physical and in the interval since the performance of the History & Physical I have noted the following changes of clinical significance: No changes noted. Left eye cataract surgery.
[2017-02-04] MEDS: PHENYLEPHRINE HCL 2.5% OP SOLN PER DROP CHARGE OPL SCH ×3 (07:37→07:47)
[2017-02-04] MEDS: TROPICAMIDE 1% OP SOLN PER DROP CHARGE OPL SCH ×3 (07:38→07:48)
[2017-02-04] MEDS: CYCLOPENTOLATE HCL 1% OP SOLN PER DROP CHARGE OPL SCH ×3 (07:39→07:49)
[2017-02-04] MEDS: MOXIFLOXACIN OPH SOLN PER DROP CHARGE OPL SCH ×3 (07:40→07:50)
--- NOTE | 2017-02-04 08:43 | [facility] Post Operative Brief Note ---
Immediate Operative Summary Operative Date February 04, 2017. Pre-Operative Diagnosis Cataract Left Eye Post-Operative Diagnosis Same Procedure(s) Performed Left Cataract Phacoemulsification With Intraocular Lens Implant Surgeon Dr. Blair Legal Stenographer Surgeon(s) None Estimated Blood Loss 0 Findings left cataract Specimens 0 Complication(s) None Disposition
--- NOTE | 2017-02-04 08:44 | [facility] Operative Report ---
Operative Report Date of Service February 04, 2017. Operative Report Phaco with monofocal IOL DATE OF OPERATION: 02/04/17 PREOPERATIVE DIAGNOSIS: Senile nuclear cataract, left eye POSTOPERATIVE DIAGNOSIS: Senile nuclear cataract, left eye PROCEDURE PERFORMED: Phacoemulsification with intraocular lens implantation, left eye SURGEON: Dr. Raymond Blair ANESTHESIA: Topical with 1% intracameral lidocaine and monitored anesthesia care COMPLICATIONS: None DESCRIPTION OF PROCEDURE: After positively identifying the patient both verbally and by wristband in the preoperative area, the left eye was marked as the operative eye. The patient was then brought back to the operating room by the anesthesia and nursing staff where they were given a drop of Lidocaine and betadine into the operative eye. They were then sterilely prepped and draped in the standard fashion typical for ophthalmic surgery. Steri-strips were placed along the upper eyelids to keep the lashes back, and a lid speculum was placed into the operative eye. At this point, a documented time out was performed with members of the ophthalmology, nursing, and anesthesia staffs all agreeing upon the correct patient, correct location for surgery, correct procedure, and correct type and power of intraocular lens to be implanted. The microscope was then swung into position. First, a paracentesis wound was made using a sideport blade. Then, in sequence, 1% preservative-free lidocaine followed by Endocoat viscoelastic was injected into the anterior chamber. Next , the main incision was made with a keratome blade in triplanar fashion. A sharp cystotome was introduced into the eye and used to create a tear in the anterior capsule, which was directed into a continuous curvilinear capsulorrhexis using Utrata forceps. Hydrodissection was then performed with BSS on a flat-tip cannula. Next, the phacoemulsification handpiece was introduced into the eye and used to remove the nucleus in a fbamjy-phy-ulpefwg fashion. This was done without complication and then the irrigation-aspiration handpiece was introduced into the eye and used to remove all remaining cortical and epinuclear material. Amvisc was then injected into the anterior chamber as well as into the capsular bag and using the lens injector system, an MX60 21.0 D lens, serial number [id number], and expiration date 09/2019 was injected into the capsular bag and rotated into the correct position. Next, the irrigation- aspiration handpiece was used to remove all remaining Amvisc. BSS was used to hydrate the main wound, and then BSS was injected into the paracentesis site to reach physiologic pressure and then the main wound was checked and found to be watertight. The patient was given drops of Vigamox and Tobradex ointment into the operative eye, and then the surrounding area was cleaned and dried. A clear plastic shield was placed over the eye and the patient was then sat up and taken from the operating room by the anesthesia staff having tolerated the procedure well and suffering no complications. DISPOSITION: The patient was returned to the recovery room in stable condition. I attest to the content of the Intraoperative Record and any orders documented therein. Any exceptions are noted below.
--- NOTE | 2017-02-04 08:45 | Discharge Instructions-SurgCtr ---
Discharge Instructions Date of Service February 04, 2017. Visit Reason for Visit: Cataract Left Eye Discharge Discharge Diagnosis / Problem: left cataract Discharge Goals Goal(s): Decrease discomfort, Improve function Medications Stopped Medications Name(s): Pt. was told only to take Neurotin this a.m.. Activity Recommendations Activity Limitations: as noted below Anesthesia . Post Anesthesia Instructions: If you have had General Anesthesia or IV Sedation: * Do not drive today. * Resume driving when surgeon permits. * Do not make important decisions or sign legal documents today. * Call surgeon for: 1. Temperature elevations greater than 101 degrees F. 2. Uncontrollable pain. 3. Excessive bleeding. 4. Persistent nausea and vomiting. 5. Medication intolerance (nausea, vomiting or rash). * For nausea and vomiting use only clear liquids such as: tea, soda, bouillon until nausea subsides, then gradually increase diet as tolerated. * If you have any concerns or questions, call your surgeon's office. If physician is unavailable and it is an emergency, call 911 or go to the nearest emergency room. . Instructions / Follow-Up Instructions / Follow-Up ACTIVITY RECOMMENDATIONS: * Light activities. * You may walk outside, read, watch television. * You may notice redness on the white part of the eye and some blurry vision - this is normal. MEDICATIONS: Resume previous medications unless instructed otherwise by your surgeon. Start all eye drops at 11 am today: * Eye drops (today): Prednisone - one drop in operative eye every 2 hours while awake Ofloxacin - one drop in operative eye every 2 hours while awake Bromfenac - one drop in operative eye daily SPECIAL CARE INSTRUCTIONS: * Tape plastic shield over eye to sleep at night. Call your doctor at with any concerns or problems. FOLLOW UP VISIT: Follow-up with Dr Blair at [place] office as scheduled. Diet Recommendations Home Diet: no limitations Procedures Procedures Performed: Left Cataract Phacoemulsification With Intraocular Lens Implant Pending Studies Studies pending at discharge: no Medical Emergencies . Who to Call and When: Medical Emergencies: If at any time you feel your situation is an emergency, please call 911 immediately. . Non-Emergent Contact Non-Emergency issues call your: Surgeon . . "Provider Documentation" section prepared by Raymond Blair. .
[2017-02-04 08:47] VITALS: TEMP 36.3
[2017-02-04 08:59] VITALS: BP 118/77; PULSE 78; O2SAT 98
--- NOTE | 2017-02-04 09:16 | Anesthesia Progress Nt - [facility] ---
Anesthesia Post Op Note Date & Time February 04, 2017 at 09:15 Vital Signs Pain Intensity: 0 Vital Signs Past 12 Hours Date Time Temp Pulse Resp B/P Pulse Ox O2 Delivery O2 Flow Rate FiO2 02/04/17 08:59 78 16 118/77 98 Room Air 02/04/17 08:47 36.3 79 16 122/82 99 Room Air 02/04/17 07:23 36.6 86 16 118/76 97 Room Air Notes Mental Status: alert / awake / arousable, participated in evaluation Pt Amnestic to Procedure: Yes Nausea / Vomiting: adequately controlled Pain: adequately controlled Airway Patency, RR, SpO2: stable & adequate BP & HR: stable & adequate Hydration State: stable & adequate Anesthetic Complications: no major complications apparent
== END | disposition home or self-care (01) ==
LOC: X.SURG 07:02
PROVIDERS: ATTEND Ophthalmology
DX: H25.12 Age-related nuclear cataract, left eye (principal); H40.1190 Primary open-angle glaucoma, unspecified eye, stage unspecified; Z90.710 Acquired absence of both cervix and uterus; Z90.10 Acquired absence of unspecified breast and nipple

== ENCOUNTER → 2017-05-21 | Outpatient (CLI) | payer BC ==
[~2017-05-21] MED LIST changes: -500ML BSS 0.3ML EPI 1:1000PF IRRIG ONE; -ACETAMINOPHEN 325 MG TAB PO PRN; -AMVISC PLUS 0.8ML SYRINGE INT OCU ONE; -ATROPINE SULFATE 0.1 MG/ML 5ML SYR IV PRN; -BSS FLUSH ONE; -ENDOCOAT 0.85ML SYRINGE INT OCU ONE; -EpHEDrine SULFATE INJ 50 MG/ML AMP IV PRN; -EpINEphrine INJ 1MG/ML AMP 1 MG/ML AMP ONE; -FENTANYL CITRATE INJ 50 MCG/1 ML 2 ML VIAL ONE; -LIDOCAINE 4% OP SOLN DROP CHARGE ONE; -LIDOCAINE 4% OP SOLN DROP CHARGE OPL SCH; -LIDOCAINE HCL 1% MPF 2 ML VIAL ONE; -MIDAZOLAM HCL 1 MG/ML 2ML VIAL ONE; -MIX: 4ML BSS 1ML EPI 1:1000 PF TOP ONE; -MOXIFLOXACIN OPH SOLN PER DROP CHARGE ONE; -POVIDONE-IODINE OP SOLN 30 ML BTL ONE; -PROPARACAINE 0.5% OP SOLN PER DROP CHARGE OPL SCH; -TOBRAMYCIN/DEXAMETHASONE OPH OINT PER APPLN CHARGE ONE
[2017-05-21 13:24] LABS: BASO % 0.2 %; BASO ABS # 0.01 K/uL (0-0.2); COMPLETE YES; EOS % 1.9 %; HEMATOCRIT 39.2 % (37-47); IG% 0.2 %; LYMPH % 29.8 %; LYMPH ABS # 1.42 K/uL (1.2-3.4); MEAN CELL VOLUME 99.7 fL (80-100); MEAN CORPUSCULAR HEMOGLOBIN 32.3 pg (25-34); MEAN CORPUSCULAR HGB CONC 32.4 g/dl (32-36); MEAN PLATELET VOLUME 11.5 fL (7.4-10.4); MONO % 10.3 %; NEUT % 57.6 %; PLATELET COUNT 237 K/uL (130-400); RED BLOOD COUNT 3.93 M/uL (4.2-5.4); WHITE BLOOD COUNT 4.76 K/uL (4.8-10.8)
[2017-05-21 13:58] LABS: ALT/SGPT 34 U/L (12-78); AST/SGOT 30 U/L (15-37); BLOOD UREA NITROGEN 16 mg/dl (7-18); BUN/CREATININE RATIO 21.3 (10-20); CARBON DIOXIDE 27 mmol/L (21-32); CHLORIDE 105 mmol/L (98-107); CREATININE 0.74 mg/dl (0.60-1.20); GLUCOSE 91 mg/dl (70-99); POTASSIUM 3.9 mmol/L (3.5-5.1); SODIUM 140 mmol/L (136-145)
[2017-05-21 14:01] LABS: ALKALINE PHOSPHATASE 98 U/L (45-117); CHOLESTEROL 184 mg/dl (0-200); CHOLESTEROL/HDL RATIO 3.4; HDL CHOLESTEROL 54 mg/dl; TRIGLYCERIDES 83 mg/dl (0-150); VERY LOW DENSITY LIPOPROT CALC 17 mg/dl
== END | disposition home or self-care (01) ==
LOC: C.LABSPEC 12:40
PROVIDERS: ATTEND Internal Medicine
DX: Z00.00 Encounter for general adult medical examination without abnormal findings (principal); D50.9 Iron deficiency anemia, unspecified; M85.80 Other specified disorders of bone density and structure, unspecified site

== ENCOUNTER → 2017-10-29 | Outpatient (CLI) | payer BC ==
[~2017-10-29] MED LIST changes: +PANT1TAB3 PO; -PANT1TAB48 PO
== END | disposition home or self-care (01) ==
LOC: C.LABSPEC 12:28
PROVIDERS: ATTEND Internal Medicine Rheumatology
DX: E55.9 Vitamin D deficiency, unspecified (principal)